=== PATIENT | female | born 1940 | race Caucasian/White ===

== ENCOUNTER → 2017-05-29 | Outpatient (CLI) | payer MEDICARE, BC ==
[~2017-05-29] MED LIST: ASPIRIN PO; ASPIRIN81 M2 PO; ASPIRIN81 MG PO; COUMADIN PO; COUMADIN3 MG PO; CRESTOR10 MG PO; DIGITEK125 MCG PO; K-DUR20 ME2 PO; K-LOR HOSPITAL20 ME1 PO; LANOXIN PO; LASIX PO; LASIX80 MG PO; LATANOPROST2.5 ML OP; LEVAQUIN PO; LEVOTHYROXINE50 MC1 PO; LEVOTHYROXINE50 MCG PO; LIPITOR PO; LIPITOR20 MG PO; LISINOPRIL PO; LOPRESSOR PO; MAGNESIUM400 MG PO; METOPROLOL SUC200 MG PO; MIRALAX17 GM PO; NORCO 5/325 TAB1 TAB PO; PRADAXA150 MG PO; PREVACID15 MG PO; PROTONIX PO; SIMVASTATIN40 MG PO; TOPROL XL PO; TRAVATAN Z5 ML OU; TRIAMTERENE-HC1 EAC1 PO; TRICOR PO; WARFARIN SODIUM3 M1 PO; XALATAN OP; XALATAN OU
--- NOTE | ~2017-05-29 | BD1 ---
[facility] A Service of [facility] RADIOLOGY TEXT RESULTS PATIENT: ZAHIRA TO LOCATION: [facility] : 36 UNIT #: [id number] AGE: [address]: Randy Brenner MD SEX: F ORDER DR: [id number] [facility] [address] [place], [place] [address] [id number] O MR#: [id number] Acc #: [id number] NAME: ZAHIRA TO : 1940 SEX: F STUDY DATE/TIME: 05/29/2017 12:29 UNIT: [facility] ROOM: STUDY DESCRIPTION: BD Dexa Bone Dens 1+ Site Attending Physician: Randy Brenner M.D. Referring Physician: Randy Brenner M.D. Ordering Physician: Randy Brenner M.D. Primary Care Physician: Randy Brenner M.D. MEDICAL IMAGING REPORT This report is preliminary unless electronic signature is present EXAM DXA scan, 05/29/2017. HISTORY Status post menopause with no hormone replacement therapy. Osteopenia. Removal of 1 ovary. Hypertension with blood pressure medication for 4 years. Thyroid medication levothyroxine use for 2 years. FINDINGS Bone mineral density in the lumbar spine from L1-L4 is 0.88 g/cm2 which is 1.4 standard deviations below the mean when compared to the young adult reference population which is characteristic of osteopenia. This is 1.2 standard deviations above the mean when compared to the age-matched population. Bone mineral density in the left femoral neck was 0.489 g/cm2 which is 3.2 standard deviations below the mean when compared to the young adult reference population which is characteristic of osteoporosis. This is 1 standard deviation below the mean when compared to the age-matched population. IMPRESSION Bone mineral density in the lumbar spine characteristic of osteopenia and within the left hip characteristic of osteoporosis. Dictated by... David Burton M.D. THIS IS AN ELECTRONICALLY VERIFIED REPORT David Burton M.D. at 05/30/2017 5:35 PM KRT/tmw [facility]. [facility] A Service of [facility] RADIOLOGY TEXT RESULTS [facility]: [id number] 36 UNIT #: [id number] AGE: [address]: Randy Brenner MD SEX: F ORDER DR: TD: 05/30/2017 12:30 JOB #: [id number] MEDICAL IMAGING REPORT Page 1 of 1 COPY
== END | disposition home or self-care (01) ==
LOC: CWCC 05-20 12:30
DX: Z78.0 Asymptomatic menopausal state (principal); M85.88 Other specified disorders of bone density and structure, other site; M81.0 Age-related osteoporosis without current pathological fracture
CPT/HCPCS: 77080